=== PATIENT | female | born 1995 | race Caucasian/White ===

== ENCOUNTER 2018-08-04 12:47 | Emergency (ER) | payer MEDICAID, OTHER ==
[~2018-08-04] VITALS: Ht 170.2 cm; Wt 52.2 kg
[~2018-08-04 12:47] MED LIST: MOME13HF IH
[2018-08-04] MEDS ORDERED: ALBU8HFA4 (12:55)
--- NOTE | 2018-08-04 12:55 | NUR ---
RECEIVED PT FROM HOME, AMBULATORY, ALERT AND ORIENTED X4, CC COUGH AND SOB +WHEEZING. AFEBRILE. KEPT WARM AND COMFORTABLE.
[2018-08-04] MEDS ORDERED: predniSONE 50 MG TABLET ONE (12:57)
[2018-08-04] MEDS ORDERED: predniSONE 10 MG TABLET ONE (12:57)
--- NOTE | 2018-08-04 12:59 | NUR ---
MD AT BEDSIDE. EXAM DONE. DUE MEDS RENDERED. WILL MONITOR ACCORDINGLY
[2018-08-04] MEDS ORDERED: IPRATROPIUM BROMIDE 0.5 MG/2.5 ML NEBU NEB ONE (13:00)
[2018-08-04] MEDS ORDERED: IPRATROPIUM BROMIDE 0.5 MG/2.5 ML NEBU ONE (13:00)
[2018-08-04] MEDS ORDERED: ALBUTEROL SULFATE 2.5 MG/ 0.5 ML NEBU ONE (13:00)
[2018-08-04] MEDS ORDERED: predniSONE 10 MG TABLET PO ONE (13:00)
[2018-08-04] MEDS ORDERED: ALBUTEROL SULFATE 2.5 MG/3 ML NEBU NEB ONE (13:00)
[2018-08-04] MEDS ORDERED: ALBUTEROL SULFATE 2.5 MG/3 ML NEBU ONE (13:01)
--- NOTE | 2018-08-04 13:10 | NUR ---
RT AT BEDSIDE. PT ABLE TO TOLERATE TX
--- NOTE | 2018-08-04 14:06 | NUR ---
Patient discharged to home in stable conditon. Written and verbal after care instructions given. Patient verbalizes understanding of instructions. ALL BELONGINGS ARE WITH PT, AMBULATORY AND NOT IN ANY FORM OF DISTRESS.
[2018-08-04 14:08] VITALS: BP 108/78
== END 2018-08-04 14:09 | disposition home or self-care (01) ==
LOC: ER 12:47
DX: J45.909 Unspecified asthma, uncomplicated (principal); Z79.899 Other long term (current) drug therapy
CPT/HCPCS: 94644; 99285; J7512 ×2; A4663; J3590